=== PATIENT | male | born 2005 | race Caucasian/White ===

== ENCOUNTER 2024-03-16 13:51 | Outpatient (CLI) | payer OTHER, SELFPAY ==
--- NOTE | ~2024-03-16 | MR_ITS ---
EXAMINATION: MR elbow LT w con DATE: 03/16/2024 15:20 INDICATION: Left elbow pain TECHNIQUE: Magnetic resonance imaging (MRI) of the left elbow was performed without intravenous contr ast. Sequences included axial, sagittal and coronal T2-weighted FS FSE and T1-weighted FS FSE and sag ittal PD-weighted FSE. COMPARISON: None. Osseous/other: Normal alignment. Normal marrow signal with no marrow edema, fracture, osteochondral lesion or patho logic marrow replacing process. Tendons: Triceps, biceps brachii and brachialis tendons are normal. Common flexor tendon wad is normal. The c ommon extensor tendon wad is normal. Ligaments: The medial and lateral collateral ligament complexes are normal. Cubital tunnel: Cubital tunnel is unremarkable with normal signal and caliber of the ulnar nerve. Fluid: No loose bodies or other filling defects within the contrast enhanced fluid in the joint space. IMPRESSION: 1. Normal MRI arthrogram of the left elbow. Reviewed, dictated and finalized at location B. BLENDER
--- NOTE | ~2024-03-16 | XR_ITS ---
EXAMINATION: XR fl inj elbow LT for MR/CT DATE: 03/16/2024 14:52 INDICATION: Left elbow pain TECHNIQUE: A time-out was performed to verify the patient's name, date of , and procedure to b e performed. The procedure including the risks, benefits, and alternatives was discussed with the pat ient. Risks discussed included bleeding and infection. The patient understood the risks and agreed to proceed. The skin overlying the radiocapitellar articulation of the left elbow joint was prepped an d draped in usual sterile fashion. Anesthetic was administered with 1% lidocaine subcutaneously. A 25 G needle was advanced under fluoroscopic guidance into the joint. Injection of <1 mL of Omnipaque 350 confirmed intra-articular position of the needle. Subsequently, injectate consisting of 9 mL of 2.5:1:0.5 mixture of sterile saline:Omnipaque 350:2% lidocaine mixed 200:1 with 529 mg/mL Multihance gadolinium contrast was instilled with intra-articular administration confirmed with intermittent f luoroscopy. The needle was removed and the entry site was cleaned and dressed. There were no immedia te complications. Fluoroscopy exposure time was 0.5 minutes. The total number of images was 7. FINDINGS: Real-time fluoroscopy demonstrates the needle in the left elbow joint. IMPRESSION: 1. Successful left elbow joint injection of dilute gadolinium contrast mixture for subsequent MRI art hrogram which will be dictated separately. Reviewed, dictated and finalized at location B. TION ACCOUNTANT IMPRESSION: 1. Successful left elbow joint injection of dilute gadolinium contrast mixture for subsequent MRI arthrogram which will be dictated separately.
== END 2024-03-16 13:52 | disposition home or self-care (01) ==
LOC: MICIMG 13:53
PROVIDERS: PCP Physician Assistant
DX: M25.522 Pain in left elbow (principal); S53.422A Ulnohumeral (joint) sprain of left elbow, initial encounter; S59.902A Unspecified injury of left elbow, initial encounter
CPT/HCPCS: 20605; 73222; 77002; A9577; Q9967